=== PATIENT | male | born 1985 | race Caucasian/White ===

== ENCOUNTER 2022-06-11 23:56 | Inpatient (IN) | payer MEDICAID ==
[~2022-06-11] VITALS: Ht 175.3 cm; Wt 81.6 kg
[2022-06-12] MEDS ORDERED: SODIUM CHLORIDE 0.9% 1,000 ML IV ONE (01:15)
[2022-06-12] MEDS ORDERED: LEVETIRACETAM 500MG PREMIX 100 ML IV ONE (01:15)
[2022-06-12 03:01] LABS: *AMPHETAMINES SCREEN URINE NEGATIVE (NEGATIVE); *BARBITURATES SCREEN URINE NEGATIVE (NEGATIVE); *BENZODIAZEPINES SCREEN URINE NEGATIVE (NEGATIVE); *COCAINE SCREEN URINE NEGATIVE (NEGATIVE); CANNABINOID URINE SCREEN NEGATIVE (NEGATIVE); METHADONE URINE SCREEN NEGATIVE (NEGATIVE); OPIATES URINE SCREEN NEGATIVE (NEGATIVE); PHENCYCLIDINE URINE SCREEN NEGATIVE (NEGATIVE)
[2022-06-12 03:16] LABS: BASOPHILS % 0.3 % (0.0-2.0); EOSINOPHILS % 1.2 % (0.0-5.0); HEMATOCRIT. 38.8 % (42.0-52.0); HEMOGLOBIN. 13.7 g/dL (14.0-18.0); LYMPHOCYTES % 22.6 % (20.0-50.0); MEAN CORPUSCULAR HEMOGLOBIN 32.4 pg (28.0-32.0); MEAN CORPUSCULAR VOLUME 91.4 fL (80.0-94.0); MEAN PLATELET VOLUME 8.5 fl (7.4-10.4); NEUTROPHILS % 67.9 % (40.0-76.0); PLATELET 292 x1000/uL (130-400); RED BLOOD CELL COUNT 4.24 mill/uL (4.7-6.1); RED CELL DISTRIBUTION WIDTH 12.5 % (11.6-14.6)
[2022-06-12 03:20] LABS: CHLORIDE 100 mEq/L (98-107)
[2022-06-12 03:39] LABS: ETHANOL BLOOD < 10 mg/dL
[2022-06-12] MEDS ORDERED: MAGNESIUM/ALUMINUM HYDROXIDE/SIMETHICONE 30ML UDC PO PRN (04:00)
[2022-06-12] MEDS ORDERED: TRAMADOL 50MG TABLET PO PRN (04:00)
[2022-06-12] MEDS ORDERED: ACETAMINOPHEN 325MG TABLET PO PRN (04:00)
[2022-06-12] MEDS ORDERED: LORAZEPAM 2MG/ML CPJ IV PRN (04:00)
[2022-06-12] MEDS ORDERED: ONDANSETRON HCL 4MG/2ML INJ IV PRN (04:00)
[2022-06-12] MEDS ORDERED: DOCUSATE SODIUM 100MG CAPSULE PO PRN (04:00)
[2022-06-12] MEDS ORDERED: GUAIFENESIN 200MG/10ML SUGAR FREE UDC PO PRN (04:00)
[2022-06-12] MEDS: SODIUM CHLORIDE 0.45% 1,000 ML IV SCH ×2 (05:19→19:22)
[2022-06-12 07:08] LABS: CREATINE KINASE 190 IU/L (39-308)
[2022-06-12 08:00] VITALS: BP 147/94
[2022-06-12 09:00] VITALS: BP 147/94
[2022-06-12] MEDS: AMLODIPINE 10MG TABLET PO SCH (10:37)
[2022-06-12] MEDS: ENOXAPARIN 40MG/0.4ML SYR SUBCUT SCH (10:38)
[2022-06-12] MEDS ORDERED: DEXTROSE 50% WATER 50ML SYRINGE IV PRN (11:45)
[2022-06-12 12:00] VITALS: BP 140/84
[2022-06-12] MEDS: INSULIN LISPRO 100 UNITS/ML SUBCUT SCH ×3 (12:53→21:13)
[2022-06-12] MEDS: LEVETIRACETAM 500MG TABLET PO SCH ×2 (12:58→21:12)
[2022-06-12] MEDS: BLOOD SUGAR DIAGNOSTIC STRIP TEST SCH ×3 (12:59→20:15)
[2022-06-12] MEDS ORDERED: INFLUENZA VACCINE 05/PF 0.5 ML SYRINGE IM ONE (15:00)
[2022-06-12] MEDS ORDERED: CLONIDINE 0.1MG TABLET PO PRN (15:45)
[2022-06-12 16:00] VITALS: BP 141/85
[2022-06-12 18:06] LABS: T4 FREE 0.97 ng/dL (0.76-1.46)
[2022-06-12 18:13] LABS: CREATINE KINASE 240 IU/L (39-308); GAMMA GLUTAMYL TRANSPEPTIDASE 31 IU/L (11-50)
[2022-06-12 20:00] VITALS: BP 148/99
[2022-06-13] VITALS: BP 122/85
[2022-06-13 04:00] VITALS: BP 109/76
[2022-06-13] MEDS: BLOOD SUGAR DIAGNOSTIC STRIP TEST SCH ×2 (05:34→12:11)
[2022-06-13] MEDS: INSULIN LISPRO 100 UNITS/ML SUBCUT SCH ×2 (06:42→12:24)
[2022-06-13 08:00] VITALS: BP 141/88
[2022-06-13 08:00] LABS: BASOPHILS % 0.2 % (0.0-2.0); EOSINOPHILS % 2.9 % (0.0-5.0); HEMATOCRIT. 42.9 % (42.0-52.0); HEMOGLOBIN. 15.1 g/dL (14.0-18.0); LYMPHOCYTES % 42.3 % (20.0-50.0); MEAN CORPUSCULAR HEMOGLOBIN 32.3 pg (28.0-32.0); MEAN PLATELET VOLUME 8.2 fl (7.4-10.4); MONOCYTES % 7.3 % (2.0-8.0); NEUTROPHILS % 47.3 % (40.0-76.0); PLATELET 315 x1000/uL (130-400); RED BLOOD CELL COUNT 4.66 mill/uL (4.7-6.1); RED CELL DISTRIBUTION WIDTH 12.6 % (11.6-14.6)
[2022-06-13 08:10] LABS: CHLORIDE 104 mEq/L (98-107)
[2022-06-13 08:18] LABS: HDL CHOLESTEROL 45 mg/dL (40-59); LDL CHOLESTEROL 116 mg/dL (5-100)
[2022-06-13] MEDS: ENOXAPARIN 40MG/0.4ML SYR SUBCUT SCH (08:54)
[2022-06-13] MEDS: LEVETIRACETAM 500MG TABLET PO SCH (08:54)
[2022-06-13] MEDS: AMLODIPINE 10MG TABLET PO SCH (08:54)
[2022-06-13] MEDS: SODIUM CHLORIDE 0.45% 1,000 ML IV SCH (08:55)
[2022-06-13 12:00] VITALS: BP 139/88
[2022-06-13] MEDS ORDERED: METF-414 MT (13:39)
[2022-06-13 13:42] VITALS: BP 139/88
== END 2022-06-13 14:30 | disposition home or self-care (01) | DRG 420 ==
LOC: ER 06-12 00:29 → 8WST 06-12 02:52 → EDBEDREQTM 06-12 02:56 → EDBEDREQ 06-12 02:56 → ENRESERV 06-12 07:29
PROVIDERS: ADMIT Hospitalist; ATTEND Hospitalist
DX: E11.00 Type 2 diabetes mellitus with hyperosmolarity without nonketotic hyperglycemic-hyperosmolar coma (NKHHC) (principal); E87.0 Hyperosmolality and hypernatremia; R56.9 Unspecified convulsions; E11.65 Type 2 diabetes mellitus with hyperglycemia; I10 Essential (primary) hypertension; E78.1 Pure hyperglyceridemia; Z79.84 Long term (current) use of oral hypoglycemic drugs; Z83.3 Family history of diabetes mellitus; Z82.49 Family history of ischemic heart disease and other diseases of the circulatory system
CPT/HCPCS: 36415; 71045; 80053; 80061; 80305; 80320; 82550; 82962; 82977; 83036; 84439; 84443; 84484; 85025; 93005; 99285; J1650; J1815; J1953; J7030; G0480